=== PATIENT | female | born 1945 | race African-American/Black ===

== ENCOUNTER 2019-10-02 13:38 | Emergency (ER) | payer BC, OTHER ==
[~2019-10-02] VITALS: Ht 167.6 cm; Wt 81.0 kg
[~2019-10-02 13:38] MED LIST: VALS320T2
[2019-10-02 13:51] VITALS: BP 119/86
== END 2019-10-02 17:20 | disposition left against medical advice (07) ==
LOC: ER 13:38
DX: I10 Essential (primary) hypertension (principal); Z53.21 Procedure and treatment not carried out due to patient leaving prior to being seen by health care provider

== ENCOUNTER 2022-12-19 11:08 | Emergency (ER) | payer BC, MEDICARE ==
[~2022-12-19] VITALS: Ht 167.6 cm; Wt 77.0 kg
[2022-12-19 11:25] VITALS: BP 218/92
[2022-12-19] MEDS ORDERED: GUAI600T26 MT (11:52)
[2022-12-19] MEDS ORDERED: ISOP30DR11 TP (11:52)
== END 2022-12-19 12:08 | disposition home or self-care (01) ==
LOC: ER 11:08
DX: H61.20 Impacted cerumen, unspecified ear (principal); R09.81 Nasal congestion; I10 Essential (primary) hypertension
CPT/HCPCS: 99282

== ENCOUNTER 2022-12-20 12:47 | Emergency (ER) | payer BC, MEDICARE ==
[~2022-12-20] VITALS: Ht 172.7 cm; Wt 90.0 kg
[~2022-12-20 12:47] MED LIST changes: +GUAI600T26 MT; +ISOP30DR11 TP
[2022-12-20 12:56] VITALS: BP 200/84
== END 2022-12-20 13:07 | disposition left against medical advice (07) ==
LOC: ER 12:47
DX: Z53.21 Procedure and treatment not carried out due to patient leaving prior to being seen by health care provider (principal)
CPT/HCPCS: 99281

== ENCOUNTER 2024-09-15 08:58 | Emergency (ER) | payer BC, MEDICARE ==
[~2024-09-15] VITALS: Ht 167.6 cm; Wt 95.0 kg
[2024-09-15 09:10] VITALS: O2SAT 97
[2024-09-15 10:32] LABS: POTASSIUM 3.4 mEq/L (3.5-5.1)
[2024-09-15 10:33] LABS: CALCIUM 9.6 mg/dL (8.7-10.4)
[2024-09-15 10:38] LABS: CREATININE 1.2 mg/dL (0.6-1.0)
[2024-09-15 10:46] LABS: BASOPHILS % 0.6 % (0.0-2.0); EOSINOPHILS % 0.2 % (0.0-5.0); HEMATOCRIT. 39.7 % (36.0-48.0); HEMOGLOBIN. 12.7 g/dL (12.0-16.0); LYMPHOCYTES % 24.8 % (20.0-50.0); MEAN CORPUSCULAR HEMOGLOBIN 27.8 pg (28.0-32.0); MEAN PLATELET VOLUME 9.1 fl (7.4-10.4); MONOCYTES % 8.4 % (2.0-8.0); PLATELET 224 x1000/uL (130-400); RED BLOOD CELL COUNT 4.56 mill/uL (4.2-5.4); RED CELL DISTRIBUTION WIDTH 14.9 % (11.6-14.6); WHITE BLOOD COUNT 4.1 x1000/uL (4.5-11.0)
[2024-09-15] MEDS: POTASSIUM CHLORIDE 20MEQ TABLET SR PO NR (11:41)
[2024-09-15] MEDS: MECLIZINE 25MG TABLET PO ONE (11:41)
[2024-09-15] MEDS ORDERED: MECL-299 MT (12:07)
[2024-09-15 12:18] VITALS: BP 156/84; PULSE 96; RESP 18; TEMP 36.83628; O2SAT 97
== END 2024-09-15 12:19 | disposition home or self-care (01) ==
LOC: ER 08:58
DX: R42 Dizziness and giddiness (principal); I10 Essential (primary) hypertension; I16.0 Hypertensive urgency
CPT/HCPCS: 99284; 80048; 85025; 36415; 93005; J8597